=== PATIENT | male | born 1960 | race Caucasian/White ===

== ENCOUNTER 2023-02-15 13:47 | Outpatient (REF) | payer OTHER, SELFPAY ==
[2023-02-15 15:56] LABS: Iron 71 mcg/dL (45-160); Percent Iron Saturation 24 % (15-50); Total Iron Binding Capacity 293 mcg/dL (228-428); Unsaturated Iron Binding 222 ug/dL
[2023-02-15 16:24] LABS: Folate 15.5 ng/mL (> or = 4.0); TSH reflex Free T4 2.35 uIU/mL (0.32-4.0); Vitamin B12 658 pg/mL (200-900)
[2023-02-23 11:19] LABS: Anti Nuclear Antibody Screen NEGATIVE (NEGATIVE)
== END 2023-02-15 13:48 | disposition home or self-care (01) ==
LOC: HO.HMGCLDS 13:47
PROVIDERS: PCP Internal Medicine; Visit Provider Physician Assistant Medical
DX: G62.9 Polyneuropathy, unspecified (principal)
CPT/HCPCS: 36415; 82607; 82746; 83540; 84443; 86038

== ENCOUNTER 2023-02-16 10:41 | Emergency (ER) | payer OTHER, SELFPAY ==
--- NOTE | ~2023-02-16 | CT_ITS ---
EXAMINATION: CT HEAD WITHOUT CONTRAST CLINICAL INFORMATION: Tingling all over. COMPARISON: None available. TECHNIQUE: Contiguous axial imaging was performed from the skull base to vertex without intravenous administration of contrast. Coronal and sagittal reformatted images were obtained. This CT examination was performed using dose optimization techniques as appropriate, variously including the following: *Automated exposure control *Adjustment of mA and/or kV according to patient size (this includes techniques or standardized protocols for targeted exams where dose is matched to indication/reason for exam; i.e. extremities or head) *Use of iterative reconstruction technique DLP: 582 mGy-cm FINDINGS: The cortical sulci are normal. The lateral ventricles are symmetrical. The third and fourth ventricles are in their normal midline position. The basilar and prepontine cisterns are unremarkable. There is no acute intra or extracerebral abnormality. There is no mass effect or midline shift. Sections through the bony calvarium are unremarkable. The paranasal sinuses are clear. The mastoid air cells show effusions inferiorly without abnormality. The bony orbits and orbital contents are unremarkable. CT/CT head/brain wo IV con IMPRESSION: No acute intracranial pathology.
[2023-02-16 10:48] VITALS: BP 129/89; PULSE 88; RESP 18; TEMP 36.8; O2SAT 99; BMI 22.1
[2023-02-16 11:04] VITALS: BP 126/77; PULSE 84; RESP 20; TEMP 36.8; O2SAT 99
--- NOTE | 2023-02-16 11:18 | PC.NURSE ---
pt AOX3, reporting tingling in upp and lower extremities and some swelling in right foot. Cardiac pretty intact, NSR POC 84.
[2023-02-16 11:22] LABS: Glucose, Whole Blood 84 mg/dL (60-115)
--- NOTE | 2023-02-16 11:49 | PC.NURSE ---
no focal neuro deficits noted, grasps equal, no facial droop or asymmetry, bilat extremity movement equal. no slurring of words.
[2023-02-16 11:57] VITALS: BP 124/77; PULSE 86; RESP 16; O2SAT 96
--- NOTE | 2023-02-16 13:13 | ED.NEUROSD ---
HPI - Neuro Symptoms/Deficit General Chief Complaint: Neuro Symptoms/Deficit Stated Complaint: Nerve issues/Tingling all over Time Seen by Provider: 02/16/23 12:53 Source: patient Mode of arrival: ambulatory Limitations: no limitations History of Present Illness HPI Narrative: 62 yo male healthy here with complaints of tingling on his head, arms, legs x 2 weeks intermittent worsened since yesterday. Patient reports>2 weeks ago he was diagnosed with a pinched nerve in his right foot. Patient tells me that due to this he has been having a lot of stress and anxiety and feels that his tingling in his entire body developed after this diagnosis. He describes a tingling as a pins and needles sensation. He denies any associated numbness, weakness, dizziness, headache, chest pain, abdominal pain, vomiting, vision changes, neck pain, neck stiffness, fevers, chills, speech change. Patient reports he went to a walk-in clinic on the 13 of February. Patient reports he had labs there. These are not available. Related Data Previous Rx's Medication Instructions Recorded lorazepam 1 mg tablet 1 mg PO BID PRN anxiety #10 tabs 02/16/23 Allergies Allergy/AdvReac Type Severity Reaction Status Date / Time No Known Allergies Allergy Verified 02/16/23 10:47 Review of Systems Review of Systems: Yes all other systems are reviewed and are negative Constitutional: Constitutional: Reports no additional constitutional complaints, Denies body ache(s), Denies chills, Denies fever(s), Denies headache(s) and Denies weakness Eyes: Eyes: Reports no additional eye complaints and Denies change in vision ENT: Reports system reviewed and no additional complaints, except as documented, Denies dizziness, Denies headache(s), Denies nasal congestion, Denies nasal discharge and Denies neck pain Cardiovascular: Cardiovascular: Reports no additional cardiovascular complaints, Denies chest pain, Denies leg edema and Denies dyspnea Respiratory: Respiratory: Reports no additional respiratory complaints, Denies cough and Denies dyspnea Gastrointestinal: Gastrointestinal: Reports no additional gastrointestinal complaints, Denies abdominal pain, Denies diarrhea, Denies nausea and Denies vomiting Genitourinary: Genitourinary: Denies urinary incontinence Musculoskeletal: Musculoskeletal: Reports no additional musculoskeletal complaints, Denies back pain, Denies arthralgias, Denies joint swelling, Denies neck pain, Denies numbness and Reports tingling Integumentary/Breasts: Skin/Breast: Reports system reviewed and no additional complaints, except as docu and Denies rash Neurologic: Reports system reviewed and no additional complaints, except as documented, Denies Abnormal speech present, Denies dizziness, Denies headache(s), Denies numbness, Reports tingling and Denies weakness PMFSH Past Medical History Attestation statement: The following information was validated with the patient. Source: old records reviewed and nursing notes reviewed Medical History Annual physical exam Seasonal allergic rhinitis Family History Family History Mother Arthritis Father No problems noted. Social History Social History Household Members Other:: single, 1 daughter, works in the [employer]ory, Housing: House Alcohol intake: never Patient Tobacco Use Status: Never used Tobacco Smoked in Last 30 Days: No e-Cigarette/Vaping Use: Never Used Use of substances other than those prescribed or required for medical reasons: No Advance Directives: No Advance Directives Information Provided: No service: No Current occupational status: employed Physical Exam Vital Signs: Vital Signs: Last Vital Signs Temp 98.3 F 02/16/23 11:04 Pulse 82 02/16/23 14:22 Resp 11 L 02/16/23 14:22 BP 132/86 02/16/23 14:22 Pulse Ox 99 02/16/23 14:22 O2 Del Method Room Air 02/16/23 14:22 BMI result Body Mass Index 22.1 Const: General: cooperative, healthy appearing, comfortable and no acute distress Orientation/consciousness: patient oriented x3 Limitations: no limitations HEENT: Head: Yes normal to inspection Ears: hearing grossly normal bilaterally and TM's normal bilaterally General nose exam: Normal external nose present Face and sinus: Yes normal facial exam Mouth: Normal oral and palatal mucosa present Throat: Yes posterior oropharynx normal, Yes tonsils normal and Yes uvula midline Eyes: General: appearance normal, both eyes and all related structures Pupils: Equal, round and reactive pupils present Neck: Neck: Yes normal visual inspection, Yes full ROM, Yes no lymphadenopathy and Yes no meningeal signs Chest: Chest palpation & inspection: normal inspection of the chest Resp: Effort & Inspection: normal respiratory effort Auscultation: clear to auscultation bilaterally Cardio: Rate: regular rate Rhythm: regular rhythm Peripheral pulses: Peripheral pulses 2+ throughout GI: Inspection: Yes normal to inspection Palpation (GI): Soft to palpation and nontender Auscultation: normal bowel sounds Back/Spine/Pelvis: Thoracic/Lumbar Spine: thoracic and lumbar spine normal to inspection Skin: General skin exam: no rashes or lesions noted Neuro: General: patient oriented x3, moves all extremities, no meningeal signs, no focal motor deficits and normal sensation to monofilament Cranial nerves: Yes CN's II-XII intact bilaterally, Yes Equal, round and reactive pupils present, Yes Bilaterally intact EOM present, Yes Nystagmus not present, Yes Normal facial strength present and Yes Midline tongue present Cognition (Neuro): normal cognition Speech: No Abnormal speech present Gait exam (Neuro): Normal gait present Motor exam (neuro): 5/5 motor strength present throughout Sensory Exam: Normal double simultaneous stimulation for sensation Deep tendon reflexes (DTR's): Right patellar reflex intensity grade: 1+ and Left patellar reflex intensity grade: 1+ Extrem: General: Yes normal to inspection, Yes no pedal edema and Yes no calf tenderness Course Course Course Narrative: Labs are unremarkable. EKG and troponin are negative. CT head shows no acute finding. Patient received 1 mg of Ativan oral while he was here in the emergency room and reports his symptoms have improved. Consider anxiety Recommend patient follow-up outpatient with his primary care doctor for further testing and evaluation. Reviewed worrisome signs and symptoms of when to return to the emergency room. Comfortable plan for discharge home. Medications Administered Discontinued Medications Generic Name Dose Route Start Last Admin Trade Name Freq PRN Reason Stop Dose Admin Lorazepam 1 mg 02/16/23 13:22 02/16/23 13:29 Lorazepam 1 Mg Tablet PO 02/16/23 13:23 1 mg ONCE ONE Administration Medical Decision Making Medical Decision Making [facility] Narrative: This is a 62-year-old male who presents to the ER with complaints of pins and needles sensation over his arms, legs, head and face for the last 2 weeks which has been intermittent but constant since yesterday. Patient denies any ascending or descending symptoms. On exam patient has no focal neurological deficits. His vitals are stable Will check labs, CT head Patient to be given lorazepam Differential Diagnosis Differential Diagnoses: The differential diagnosis associated with the presentation includes Doubt meningitis, encephalitis, intracranial hemorrhage, CVA, Grisel Carpinteria syndrome, myasthenia gravis, transverse myelitis-gradual onset, intermittent symptoms, no pattern of extension or descend giron, no fevers or associated neck pain or altered mental status Lab Data MDM Lab Attestation statement: I reviewed the patient's lab results. 02/16/23 13:44 02/16/23 13:44 Labs: Lab Results 02/16/23 02/16/23 02/16/23 Range/Units 11:17 13:44 13:44 WBC 7.6 (4.8-10.8) X10*3/uL RBC 5.02 (4.60-5.80) X10*6/uL Hgb 14.7 (14.0-18.0) g/dl Hct 42.6 (42.0-52.0) % MCV 84.9 (80.0-98.0) fL MCH 29.3 (27.0-33.0) pg MCHC 34.5 (31.0-36.0) g/dl RDW 13.1 (11.0-16.0) % Plt Count 185 (160-400) X10*3/uL MPV 9.7 (9.4-12.4) fL Immature Gran % (Auto) 0.1 (0.0-0.4) % Neut % (Auto) 84.5 H (45-73) % Lymph % (Auto) 7.9 L (20-40) % [place] % (Auto) 6.7 (2-11) % Eos % (Auto) 0.4 (0-4) % Baso % (Auto) 0.4 (0-2) % Lymph # (Auto) 0.6 L (1.2-4.9) X10*3/uL [place] # (Auto) 0.5 (0.1-1.2) X10*3/uL Eos # (Auto) 0.0 (0.0-0.4) X10*3/uL Baso # (Auto) 0.0 (0.0-0.2) X10*3/uL Abs Immat Gran (auto) 0.01 (0.00-0.03) X10*3/uL Absolute Neuts (auto) 6.4 (2.0-8.3) x10*3/uL Absolute Nucleated RBC 0.000 (0.0-0.012) X10*3/uL Nucleated RBC % (auto) 0.0 (0.0-0.2) /100WBC Sodium 139 (135-145) mmol/L Potassium 4.2 (3.3-5.1) mmol/L Chloride 106 (96-108) mmol/L Carbon Dioxide 26 (22-29) mmol/L Anion Gap 11 L (12-20) BUN 9 (9-16) mg/dL Creatinine 0.73 (0.5-1.4) mg/dL Estim Creat Clear Calc 97.9 Estimated GFR > 60 POC Glucose 84 (60-115) mg/dL Random Glucose 94 (60-115) mg/dL Calcium 9.3 (8.4-10.2) mg/dL Magnesium 2.3 (1.6-2.6) mg/dL Total Bilirubin 1.3 H (0.0-1.0) mg/dL Direct Bilirubin 0.3 (0.0-0.5) mg/dL AST 17 (5-37) U/L ALT 19 (0-40) U/L Alkaline Phosphatase 55 (39-117) U/L Total Creatine Kinase 83 (38-174) U/L Troponin I High Sens (<3.5-35.0) ng/L Total Protein 6.4 L (6.5-8.0) g/dL Albumin 4.5 (3.5-5.0) g/dL Vitamin B12 863 (200-900) pg/mL Urine Color Urine Appearance Urine pH (5.0-9.0) Ur Specific [place] (1.005-1.025) Urine Protein (Neg-Trace) mg/dL Urine Glucose (UA) (Negative) mg/dL Urine Ketones (Negative) mg/dL Urine Blood (Negative) Urine Nitrite (Negative) Ur Leukocyte Esterase (Negative) 02/16/23 02/16/23 Range/Units 13:44 13:44 WBC (4.8-10.8) X10*3/uL RBC (4.60-5.80) X10*6/uL Hgb (14.0-18.0) g/dl Hct (42.0-52.0) % MCV (80.0-98.0) fL MCH (27.0-33.0) pg MCHC (31.0-36.0) g/dl RDW (11.0-16.0) % Plt Count (160-400) X10*3/uL MPV (9.4-12.4) fL Immature Gran % (Auto) (0.0-0.4) % Neut % (Auto) (45-73) % Lymph % (Auto) (20-40) % [place] % (Auto) (2-11) % Eos % (Auto) (0-4) % Baso % (Auto) (0-2) % Lymph # (Auto) (1.2-4.9) X10*3/uL [place] # (Auto) (0.1-1.2) X10*3/uL Eos # (Auto) (0.0-0.4) X10*3/uL Baso # (Auto) (0.0-0.2) X10*3/uL Abs Immat Gran (auto) (0.00-0.03) X10*3/uL Absolute Neuts (auto) (2.0-8.3) x10*3/uL Absolute Nucleated RBC (0.0-0.012) X10*3/uL Nucleated RBC % (auto) (0.0-0.2) /100WBC Sodium (135-145) mmol/L Potassium (3.3-5.1) mmol/L Chloride (96-108) mmol/L Carbon Dioxide (22-29) mmol/L Anion Gap (12-20) BUN (9-16) mg/dL Creatinine (0.5-1.4) mg/dL Estim Creat Clear Calc Estimated GFR POC Glucose (60-115) mg/dL Random Glucose (60-115) mg/dL Calcium (8.4-10.2) mg/dL Magnesium (1.6-2.6) mg/dL Total Bilirubin (0.0-1.0) mg/dL Direct Bilirubin (0.0-0.5) mg/dL AST (5-37) U/L ALT (0-40) U/L Alkaline Phosphatase (39-117) U/L Total Creatine Kinase (38-174) U/L Troponin I High Sens < 2.7 (<3.5-35.0) ng/L Total Protein (6.5-8.0) g/dL Albumin (3.5-5.0) g/dL Vitamin B12 (200-900) pg/mL Urine Color Yellow Urine Appearance Clear Urine pH 7.0 (5.0-9.0) Ur Specific [place] <= 1.005 (1.005-1.025) Urine Protein Negative (Neg-Trace) mg/dL Urine Glucose (UA) Negative (Negative) mg/dL Urine Ketones Negative (Negative) mg/dL Urine Blood Negative (Negative) Urine Nitrite Negative (Negative) Ur Leukocyte Esterase Negative (Negative) Independent Interpretation I performed an independent interpretation of an: EKG and CT Scan Interpretation: I independently reviewed the EKG which shows normal sinus rhythm with a rate 80, normal OH, normal QRS, normal QT I independently reviewed the CT scan reviewed with radiologist report Radiology Impression Discussion of test interpretation with radiology: I have reviewed the radiologist's reading. Radiologist Impression: [place] [id number] CT Scan Report Signed Patient: Brent Herrera MR#: [id number] : 1960 Acct:[id number] Age/Sex: 62 / M ADM Date: 02/16/23 Loc: .ED Attending Dr: Ordering Physician: Asuncion Storm NP Date of Service: 02/16/23 Procedure(s): CT head/brain wo IV con Accession Number(s): [id number] cc: Asuncion Storm NP~ EXAMINATION: CT HEAD WITHOUT CONTRAST CLINICAL INFORMATION: Tingling all over.? COMPARISON: None available. TECHNIQUE: Contiguous axial imaging was performed from the skull base to vertex without intravenous administration of contrast. Coronal and sagittal reformatted images were obtained. This CT examination was performed using dose optimization techniques as appropriate, variously including the following: *Automated exposure control *Adjustment of mA and/or kV according to patient size (this includes techniques or standardized protocols for targeted exams where dose is matched to indication/reason for exam; i.e. extremities or head) *Use of iterative reconstruction technique DLP: 582 mGy-cm FINDINGS: The cortical sulci are normal. The lateral ventricles are symmetrical. The third and fourth ventricles are in their normal midline position. The basilar and prepontine cisterns are unremarkable. There is no acute intra or extracerebral abnormality. There is no mass effect or midline shift. Sections through the bony calvarium are unremarkable. The paranasal sinuses are clear. The mastoid air cells show effusions inferiorly without abnormality. The bony orbits and orbital contents are unremarkable. CT/CT head/brain wo IV con IMPRESSION: No acute intracranial pathology. Discharge Plan Discharge Clinical Impression: Tingling Patient Disposition: Home, Self-Care Instructions: Paresthesia (ED) Additional Instructions: Your lab work, EKG and CT head are all re-assuring Please follow-up with your PCP as you may need additional testing Prescriptions: New lorazepam 1 mg tablet 1 mg PO BID PRN (Reason: anxiety) Qty: 10 0RF Referrals: Kayleigh Vital MD [Primary Care Provider] - 1 week Stand Alone Forms: Work/School Release
--- NOTE | 2023-02-16 13:21 | ECG_ITS ---
Test Reason : Tingling all over Blood Pressure : / mmHG Vent. Rate : 080 BPM Atrial Rate : 080 BPM P-R Int : 180 ms QRS Dur : 084 ms QT Int : 364 ms P-R-T Axes : 072 033 062 degrees QTc Int : 419 ms Normal sinus rhythm Normal ECG When compared with ECG of 19-MAR-2017 16:06, No significant change was found Referred By: Asuncion Lucero Electronically Signed By:ZHANE JETT
[2023-02-16] MEDS: LORazepam 1 MG TABLET PO (13:29)
[2023-02-16 13:51] LABS: MANUAL DIFF FLAG NO
[2023-02-16 13:54] LABS: Basophils Percent Auto 0.4 % (0-2); Eosinophils Percent Auto 0.4 % (0-4); Hematocrit 42.6 % (42.0-52.0); Hemoglobin 14.7 g/dl (14.0-18.0); Imm Gran Abs Auto 0.01 X10*3/uL (0.00-0.03); Imm Gran Pct Auto 0.1 % (0.0-0.4); Lymphocytes Absolute Auto 0.6 X10*3/uL (1.2-4.9); Lymphocytes Percent Auto 7.9 % (20-40); Mean Corpuscular HGB Conc 34.5 g/dl (31.0-36.0); Mean Corpuscular Hemoglobin 29.3 pg (27.0-33.0); Mean Corpuscular Volume 84.9 fL (80.0-98.0); Mean Platelet Volume 9.7 fL (9.4-12.4); Monocytes Absolute Auto 0.5 X10*3/uL (0.1-1.2); Monocytes Percent Auto 6.7 % (2-11); Neutrophils Absolute Auto 6.4 x10*3/uL (2.0-8.3); Neutrophils Percent Auto 84.5 % (45-73); Platelet Count 185 X10*3/uL (160-400); Red Blood Count 5.02 X10*6/uL (4.60-5.80); Red Cell Distribution Width 13.1 % (11.0-16.0); White Blood Count 7.6 X10*3/uL (4.8-10.8)
[2023-02-16 13:57] LABS: Appearance Urine Clear; Color Urine Yellow; Glucose Urine UA Negative (Negative); Leukocyte Esterase Urine Negative (Negative); Nitrite Urine Negative (Negative); Specific Gravity - Urine <= 1.005 (1.005-1.025); Urine Blood Negative (Negative); Urine Ketones Negative (Negative); Urine Protein Negative (Neg-Trace)
[2023-02-16 14:22] VITALS: BP 132/86; PULSE 82; RESP 11; O2SAT 99
[2023-02-16 14:24] LABS: Alanine Aminotransferase 19 U/L (0-40); Albumin Level 4.5 g/dL (3.5-5.0); Alkaline Phosphatase 55 U/L (39-117); Anion Gap 11 (12-20); Aspartate Amino Transferase 17 U/L (5-37); Bilirubin Direct 0.3 mg/dL (0.0-0.5); Bilirubin Total 1.3 mg/dL (0.0-1.0); Blood Urea Nitrogen 9 mg/dL (9-16); Calcium 9.3 mg/dL (8.4-10.2); Carbon Dioxide 26 mmol/L (22-29); Chloride 106 mmol/L (96-108); Creatinine Clr Calc Pharmacy 97.9; Estimated Glomerular Filt Rate > 60; Glucose Random 94 mg/dL (60-115); Magnesium 2.3 mg/dL (1.6-2.6); Potassium 4.2 mmol/L (3.3-5.1); Sodium 139 mmol/L (135-145); Total Protein 6.4 g/dL (6.5-8.0)
[2023-02-16 14:44] LABS: Vitamin B12 863 pg/mL (200-900)
[2023-02-16 14:57] LABS: Troponin-I High Sensitivity < 2.7 ng/L (<3.5-35.0)
== END 2023-02-16 15:38 | disposition home or self-care (01) ==
PROVIDERS: Nurse Practitioner Family; Emergency Provider Emergency Medicine Emergency Medical Services; PCP Internal Medicine
DX: R20.2 Paresthesia of skin (principal); R51.9 Headache, unspecified; R94.31 Abnormal electrocardiogram [ECG] [EKG]; Z79.899 Other long term (current) drug therapy
CPT/HCPCS: 36415; 70450; 80048; 80076; 81003; 82550; 82607; 82947; 83735; 84484; 85025; 93005; 99284

== ENCOUNTER 2023-02-21 09:45 | Outpatient (REF) | payer OTHER, SELFPAY ==
--- NOTE | ~2023-02-21 | XR_ITS ---
EXAMINATIONS: XR wrist LT min 3V CLINICAL INFORMATION: Reason for Exam G56.02 - Carpal tunnel syndrome, left upper limb COMPARISON: None VIEWS: Frontal lateral and oblique navicular view FINDINGS: There is no evidence of acute fracture or dislocation. The distal radius is intact. The radiocarpal, intercarpal and carpal/metacarpal joints are normal. Ulnar styloid is intact. The scapholunate joint is normal. The lunate is properly positioned. The paizlv-iycp-fijzyefp access is normal. The scaphoid bone is a properly articulating. XR/XR wrist LT min 3V IMPRESSION: No osseous changes. MRI with IV contrast could be utilized to assess for possible soft tissue derangement including assessment for carpal tunnel if clinically indicated..
== END 2023-02-21 09:46 | disposition home or self-care (01) ==
LOC: HO.HMGCX 09:45
PROVIDERS: PCP Internal Medicine; Visit Provider Internal Medicine
DX: G56.02 Carpal tunnel syndrome, left upper limb (principal)
CPT/HCPCS: 73110

== ENCOUNTER 2023-03-20 09:20 | Outpatient (REF) | payer OTHER, SELFPAY ==
[2023-03-24 21:53] LABS: Transglutaminase IgA <1.0 U/mL
[2023-03-26 14:33] LABS: Vitamin B6 26.8 ng/mL (2.1-21.7)
[2023-03-27 22:14] LABS: Endomysial IgA Antibody Negative (Negative)
== END 2023-03-20 09:21 | disposition home or self-care (01) ==
LOC: HO.HMGCLDS 09:20
PROVIDERS: PCP Internal Medicine; Visit Provider Internal Medicine
DX: R19.7 Diarrhea, unspecified (principal)
CPT/HCPCS: 36415; 84207; 86231; 86364

== ENCOUNTER 2023-04-07 14:58 | Outpatient (REF) | payer OTHER, SELFPAY ==
[2023-04-07 18:30] LABS: TSH reflex Free T4 1.68 uIU/mL (0.32-4.0)
== END 2023-04-07 14:59 | disposition home or self-care (01) ==
LOC: HO.HMGCLDS 14:58
PROVIDERS: PCP Internal Medicine; Visit Provider Internal Medicine
DX: R53.83 Other fatigue (principal)
CPT/HCPCS: 36415; 84443

== ENCOUNTER 2023-05-02 10:26 | Outpatient (AMB) | payer OTHER, SELFPAY ==
--- NOTE | 2023-05-02 10:38 | MHC.PC.OV ---
Vital Signs 05/02/23 10:41 Height 5 ft 8 in Weight 136 lb 6 oz BMI 20.7 BP 104/68 Blood Pressure Location Rt brachial Position Sitting Pulse 90 Pulse Source Pulse Oximeter Pulse Oximetry (%) 98 Oxygen Delivery Method Room Air Intake Visit Reasons: phy Allergies buspirone Adverse Reaction (Verified 05/02/23 10:41) Fainting gabapentin Adverse Reaction (Verified 05/02/23 10:41) Nausea Medication List - Last Reconciled 05/02/23 by Kayleigh Vital MD escitalopram oxalate 10 mg PO DAILY Tobacco use date assessed: 05/02/23 Dental Screening Dental Screen Date: 05/02/23 Did you have a dental visit in the last 12 months?: Yes Did you have a dental problem in the last 6 months where you did not have access to dental care?: No Was dental information given to patient?: Patient has dentist HPI phy HPI Details Pt presents for PE. Anxiety/depression is better on escitalopram. Pt f/u with a counselor. PFSH Medical History Annual physical exam Seasonal allergic rhinitis Family History Mother Arthritis Father No problems noted. Social History Household Members Other:: single, 1 daughter, works in the [employer], Housing: House Alcohol intake: never Patient Tobacco Use Status: Never used Tobacco e-Cigarette/Vaping Use: Never Used service: No Current occupational status: employed Cognitive needs: No Hearing needs: No Vision needs: Yes Questionnaire Thrive Questionnaire Date Thrive assessed: 02/21/23 AUDIT C Alcohol Use Questionnaire (AUDIT-C) 1. How often do you have a drink containing alcohol?: Never Total Score: 0 CIERRA-7 AMB Questionnaire CIERRA-7 Date CIERRA - 7 assessed: 02/21/23 Source: Developed by Drs. Toni Mariscal, Marlyn Shipman, Tio Castillo and colleagues, with an educational tona from [employer]. Review of Systems Const All systems reviewed & are unremarkable except as noted in HPI and below Reports no additional complaints Eyes Reports no additional complaints ENT Reports no additional complaints Card Reports no additional complaints Resp Reports no additional complaints GI Reports no additional complaints Reports no additional complaints Physical exam (Primary Care) Vital Signs: Last Vital Signs Pulse 90 05/02/23 10:41 BP 104/68 05/02/23 10:41 Pulse Ox 98 05/02/23 10:41 Oxygen Delivery Method Room Air 05/02/23 10:41 BMI result Body Mass Index 20.7 Tobacco/Smoking Status: Tobacco use Status Tobacco use date assessed 05/02/23 05/02/23 10:44 Patient Tobacco Use Status Never used Tobacco 05/02/23 10:38 e-Cigarette/Vaping Use Never Used 05/02/23 10:38 Thrive Assessment: Date of Thrive Assessment Date Thrive assessed 02/21/23 05/02/23 10:38 Const General: no acute distress HENMT Head: Yes normal to inspection Ears: hearing grossly normal bilaterally General nose exam: Normal external nose present Face and sinus: Yes normal facial exam Mouth: Normal oral and palatal mucosa present Eyes General: appearance normal, both eyes and all related structures Neck Neck: Yes no lymphadenopathy and Yes supple Resp Effort & Inspection: normal respiratory effort Auscultation: clear to auscultation bilaterally Cardio Rhythm: regular rhythm Heart sounds: S1 normal heart sound present and S2 normal heart sound present GI Inspection: Yes normal to inspection Palpation (GI): Soft to palpation Percussion: Yes normal to percussion Auscultation: normal bowel sounds Assessment and Plan Assessment & Plan (1) Annual physical exam: Code(s): Z00.00 - Encounter for general adult medical examination without abnormal findings Plan: Well-balanced diet regular physical activity discussed with the patient. He will return for fasting blood work including lipid profile. Patient will be referred to GI for colonoscopy (2) Acute anxiety: Comment: Intolerant to gabapentin buspirone PER PREVIOUS NOTES Code(s): F41.9 - Anxiety disorder, unspecified Plan: Continue escitalopram follow-up with a counselor. Patient is planning to return back to work on May 29 Orders: Orders Lipid Panel Today Z00.00 - Encounter for general adult medical examination without abnormal findings PSA,Total (Free>4and<10) Today Z00.00 - Encounter for general adult medical examination without abnormal findings Complete Blood Count Man Dif Today F41.9 - Anxiety disorder, unspecified, Z00.00 - Encounter for general adult medical examination without abnormal findings Referrals Gastroenterology Referral Z00.00 - Encounter for general adult medical examination without abnormal findings Medications: Refilled escitalopram oxalate 10 mg PO DAILY 90 tabs 0RF Coding Level of Care Code Est Pt Prev Care 40-64y(77052) Diagnoses Annual physical exam Z00.00 Acute anxiety F41.9
[2023-05-02 10:41] VITALS: BP 104/68; PULSE 90; O2SAT 98; BMI 20.7
== END 2023-05-02 11:37 | disposition home or self-care (01) ==
PROVIDERS: Visit Provider Internal Medicine
DX: Z00.00 Encounter for general adult medical examination without abnormal findings (principal); F41.9 Anxiety disorder, unspecified
CPT/HCPCS: 99396

== ENCOUNTER 2024-06-19 09:08 | Outpatient (AMB) | payer OTHER, SELFPAY ==
[2024-06-19 09:08] VITALS: BP 118/72; PULSE 79; TEMP 36.5; O2SAT 98
--- NOTE | 2024-06-19 09:08 | AM.OFFWIN_ITS ---
Intake Vital Signs 06/19/24 09:08 Height 5 ft 8 in BP 118/72 Blood Pressure Location Rt brachial Position Sitting Pulse 79 Pulse Source Pulse Oximeter Temp 97.7 F Temp Source Oral Pulse Oximetry (%) 98 Oxygen Delivery Method Room Air Intake Visit Reasons: EP ?bacterial infection Intake Note: pt is here for possible bacterial infection Patient Tobacco Use Status: Never used Tobacco Allergies buspirone Adverse Reaction (Verified 06/19/24 09:09) Fainting gabapentin Adverse Reaction (Verified 06/19/24 09:09) Nausea Do you need a note to return to daycare/school/sports/work: No HPI HPI Comments History of Present Illness Details He presents to office with concern infection He was seen at dentist a few weeks ago for tooth infection; given amoxicillin After finishing antibiotics + fatigue and weakness He said sometimes better but other times worse Slight R ear pain and ST + cough, without phlegm or SOB. Cough on going x several weeks No CP Reported chills intermittent throughout week Last episode was this am + body aches Denies sick contacts No skin rashs or lyme disease but is in [place] biking often [facility] Medical History Annual physical exam Seasonal allergic rhinitis Family History Mother Arthritis Father No problems noted. Social History Household Members Other:: single, 1 daughter, works in the [employer], Housing: House Alcohol intake: never Patient Tobacco Use Status: Never used Tobacco e-Cigarette/Vaping Use: Never Used service: No Current occupational status: employed Cognitive needs: No Hearing needs: No Vision needs: Yes Review of Systems Const Reports body aches, Reports chills, Reports fever(s), Reports malaise and Denies weight loss Eyes Denies change in vision ENT Reports otalgia, Reports nasal discharge, Reports sore throat, Denies throat swelling and Denies tongue swelling Card Denies chest pain and Denies dyspnea Resp Denies chest congestion, Reports cough, Denies pain with cough and Denies dyspnea GI Denies abdominal pain, Denies constipation, Denies diarrhea, Denies nausea and Denies vomiting Musc Reports myalgias Skin/Breast Denies rash Aller/Immun Denies throat swelling and Denies tongue swelling Physical Exam Vital Signs: Last Vital Signs Temp 97.7 F 06/19/24 09:08 Pulse 79 06/19/24 09:08 BP 118/72 06/19/24 09:08 Pulse Ox 98 06/19/24 09:08 Oxygen Delivery Method Room Air 06/19/24 09:08 General: Non-toxic, NAD. Speaking full sentences. Skin: Warm dry throughout Eye: EOMI HENT: Airway patent. Uvula midline. No pharyngeal erythema or edema. No [employer]. Bilateral canals clear. TM non-erythematous, non-bulging. No TM perforation or hemotympanum noted. Respiratory: CTA bilaterally. No wheezes, rales or rhonchi Cardiac: RRR. No murmur MSK: Full ROM extremities. Neurology: A/O. No aphasia or facial droop. Gait without abnormality Psych: Good mood and affect Assessment & Plan Assessment & Plan (1) Cough: Code(s): R05.9 - Cough, unspecified Qualifiers: Cough type: acute Qualified Code(s): R05.1 - Acute cough Plan: Chest xray: i viewed as negative (2) Fatigue: Code(s): R53.83 - Other fatigue Qualifiers: Fatigue type: chronic, unspecified Qualified Code(s): R53.82 - Chronic fatigue, unspecified Plan: CBC, BMP, tick panel ordered F/U with PCP ER if any worsening symptoms such as presyncope, uncontrolled fever, CP, dyspnea Pt gave verbal understanding and had no additional questions at this time Orders: Orders XR chest 2V Today R05.9 - Cough, unspecified Complete Blood Count Auto Diff Today R53.83 - Other fatigue Basic Metabolic Panel Today R53.83 - Other fatigue Tick-borne Disease Molecular Today R53.83 - Other fatigue Coding Level of Care Code Est Pt Level 4 (73606) Diagnoses Acute cough R05.1 Cough type: acute Chronic fatigue R53.82 Fatigue type: chronic, unspecified
== END 2024-06-19 10:08 | disposition home or self-care (01) ==
PROVIDERS: PCP Internal Medicine; Visit Provider Physician Assistant
DX: R05.1 Acute cough (principal); R53.82 Chronic fatigue, unspecified

== ENCOUNTER → 2024-06-19 09:08 | Outpatient (BNVA) | payer OTHER, SELFPAY | PROVIDERS: PCP Internal Medicine | DX: R05.9 Cough, unspecified (principal) ==

== ENCOUNTER 2024-06-19 09:39 | Outpatient (REF) | payer OTHER, SELFPAY ==
--- NOTE | ~2024-06-19 | XR_ITS ---
EXAMINATION: XR CHEST CLINICAL INFORMATION: R05.9 - Cough, unspecified COMPARISON: None available. TECHNIQUE: 2 views of the chest were obtained. FINDINGS: Submitted for interpretation on August 30, 2024. No consolidation, pleural effusion or pneumothorax. Cardiomediastinal silhouette is normal in size. Multilevel thoracic spondylosis. XR/XR chest 2V IMPRESSION: No acute airspace disease. Electronically signed by: Aristides Howard MD 08/30/2024 09:08 AM BRENDA
[2024-06-19 11:21] LABS: MANUAL DIFF FLAG NO
[2024-06-19 11:28] LABS: Basophils Percent Auto 0.4 % (0-2); Eosinophils Percent Auto 0.2 % (0-4); Hemoglobin 14.9 g/dl (14.0-18.0); Imm Gran Abs Auto 0.02 X10*3/uL (0.00-0.03); Imm Gran Pct Auto 0.4 % (0.0-0.4); Lymphocytes Absolute Auto 0.5 X10*3/uL (1.2-4.9); Lymphocytes Percent Auto 8.2 % (20-40); Mean Corpuscular HGB Conc 33.9 g/dl (31.0-36.0); Mean Corpuscular Hemoglobin 29.7 pg (27.0-33.0); Mean Corpuscular Volume 87.8 fL (80.0-98.0); Monocytes Absolute Auto 0.4 X10*3/uL (0.1-1.2); Monocytes Percent Auto 7.9 % (2-11); Neutrophils Absolute Auto 4.6 x10*3/uL (2.0-8.3); Neutrophils Percent Auto 82.9 % (45-73); Platelet Count 257 X10*3/uL (160-400); Red Blood Count 5.01 X10*6/uL (4.60-5.80); Red Cell Distribution Width 13.8 % (11.0-16.0); White Blood Count 5.6 X10*3/uL (4.8-10.8)
[2024-06-19 11:52] LABS: Anion Gap 10 (12-20); Blood Urea Nitrogen 10 mg/dL (9-16); Calcium 9.2 mg/dL (8.4-10.2); Carbon Dioxide 28 mmol/L (22-29); Chloride 103 mmol/L (96-108); Estimated Glomerular Filt Rate > 60; Glucose Random 90 mg/dL (60-115); Potassium 3.8 mmol/L (3.3-5.1); Sodium 137 mmol/L (135-145)
[2024-06-21 22:29] LABS: A. Phagocytphilium DNA,RT-PCR NOT DETECTED (NOT DETECTED); Babesia Microti DNA, RT-PCR NOT DETECTED (NOT DETECTED); Borrelia Miyamotoi,DNA RT-PCR NOT DETECTED (NOT DETECTED); E.Chaffeensis DNA RT-PCR NOT DETECTED (NOT DETECTED); Lyme(Borrelia ssp)DNA RT-PCR NOT DETECTED (NOT DETECTED)
== END 2024-06-19 09:40 | disposition home or self-care (01) ==
LOC: HO.HMGCX 09:39
PROVIDERS: PCP Internal Medicine; Visit Provider Physician Assistant
DX: R05.1 Acute cough (principal); R53.83 Other fatigue
CPT/HCPCS: 36415; 71046; 80048; 85025; 87468; 87469; 87478; 87484; 87798

== ENCOUNTER → 2024-06-19 09:43 | Outpatient (BNV) | payer OTHER, SELFPAY | PROVIDERS: PCP Internal Medicine; Visit Provider Radiology Diagnostic Radiology | DX: R05.9 Cough, unspecified (principal) | CPT/HCPCS: 71046 ==